=== PATIENT | female | born 1970 | race Caucasian/White ===

== ENCOUNTER 2018-04-03 23:54 | Emergency (ER) | payer MEDICARE, OTHER ==
[~2018-04-03] VITALS: Ht 154.9 cm; Wt 60.3 kg
[2018-04-04] MEDS ORDERED: HYDROCODONE (03:58)
== END 2018-04-04 04:19 | disposition home or self-care (01) ==
LOC: ER 23:54
DX: S63.501A Unspecified sprain of right wrist, initial encounter (principal); S70.01XA Contusion of right hip, initial encounter; M25.511 Pain in right shoulder; Z88.0 Allergy status to penicillin; Z88.2 Allergy status to sulfonamides; Z88.5 Allergy status to narcotic agent; Z88.8 Allergy status to other drugs, medicaments and biological substances; W10.9XXA Fall (on) (from) unspecified stairs and steps, initial encounter
CPT/HCPCS: 73030; 73110; 96372; 99284-25; J1885